=== PATIENT | female | born 1995 | race Caucasian/White ===

== ENCOUNTER 2018-03-28 23:12 | Emergency (ER) | payer SELFPAY ==
[~2018-03-28] VITALS: Ht 162.6 cm; Wt 69.8 kg
[2018-03-28 23:14] VITALS: BP 109/72
== END 2018-03-28 23:39 | disposition home or self-care (01) ==
LOC: ED 23:20
DX: F15.951 Other stimulant use, unspecified with stimulant-induced psychotic disorder with hallucinations (principal); F15.950 Other stimulant use, unspecified with stimulant-induced psychotic disorder with delusions; B35.3 Tinea pedis
CPT/HCPCS: 99282

== ENCOUNTER 2018-08-20 12:28 | Observation (INO) | payer MEDICAID ==
[~2018-08-20] VITALS: Ht 162.6 cm; Wt 79.0 kg
--- NOTE | 2018-08-20 13:01 | NUR ---
DENIES SI, SA, HI
--- NOTE | 2018-08-20 13:20 | NUR ---
PT TO RM 39 FROM MOBILE. ASSUMED CARE OF PT. PT BELONGINGS PLACED IN TWO BAGS AND PLACED I LOCKER. PT COOPERATIVE.
--- NOTE | 2018-08-20 13:28 | NUR ---
PT DENIES HAVING MH HX. 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 PT STATES SHE RAN AWAY FROM A [facility] DAYS AGO AND HAS BEEN ON THE STREETS SINCE THEN. PT STATES SHE PRESENTED TO [facility] BECAUSE OF RIGHT LEG PAIN AND BECAUSE SHE WAS COLD.
[2018-08-20 14:01] LABS: BASOPHILS # (AUTO) 0.04 x10^3/uL (0-0.1); BASOPHILS % (AUTO) 1 % (0-1); EOSINOPHILS # (AUTO) 0.22 x10^3/uL (0-0.4); EOSINOPHILS % (AUTO) 3 % (1-7); LYMPHOCYTES # (AUTO) 2.73 x10^3/uL (1-3.4); LYMPHOCYTES % (AUTO) 37 % (22-44); MD NO; MEAN CORPUSCULAR HEMOGLOBIN 32.7 pg (27.0-34.8); MEAN CORPUSCULAR HGB CONC 33.3 g/dL (32.4-35.8); MEAN CORPUSCULAR VOLUME 97.9 fL (80-100); MEAN PLATELET VOLUME 8.3 fL (7.4-10.4); MONOCYTES # (AUTO) 0.63 x10^3/uL (0.2-0.8); MONOCYTES % (AUTO) 8 % (2-9); NEUTROPHILS # (AUTO) 3.86 x10^3/uL (1.8-6.8); NEUTROPHILS % (AUTO) 52 % (42-75); PLATELET COUNT 263 x10^3/uL (130-400); RED BLOOD COUNT 3.88 x10^6/uL (3.82-5.3)
[2018-08-20 14:12] LABS: ALBUMIN 3.4 g/dL (3.4-5.0); ANION GAP 2 mmol/L (5-15); CALCIUM 8.2 mg/dL (8.5-10.1); CHLORIDE 110 mmol/L (98-107)
[2018-08-20 14:20] LABS: CREATININE 0.86 mg/dL (0.55-1.02); SALICYLATE LEVEL 2.6 mg/dL (2.8-20.0)
[2018-08-20 14:23] LABS: ACETAMINOPHEN < 2 mcg/mL (10-30)
--- NOTE | 2018-08-20 14:23 | NUR ---
Pt resting in bed with eyes closed, resp even and unlabored, NADN. Pt easily awakens to her name being called, denies needs. Room is secured, sitter within eyesight of pt, all safety measures observed.
--- NOTE | 2018-08-20 14:24 | NUR ---
Spoke with [employer] about pt case. She has called [facility] to request pt discharge info so that we may find out what correction pt is living at as pt does not know the name.
--- NOTE | 2018-08-20 14:48 | NUR ---
PT STATES SHE CANNOT GIVE A URINE SAMPLE AT THIS TIME
--- NOTE | 2018-08-20 16:03 | NUR ---
PROVIDED SANDWICH TRAY
--- NOTE | 2018-08-20 16:15 | NUR ---
UOB AND AMBULATED SHORT DISTANCE TO RESTROOM. STEADY GAIT BUT C/O PAIN TO RIGHT LEG. NO SWELLING OR IRREGULARITY OF LEG NOTED
[2018-08-20 17:10] LABS: AMPHETAMINE SCREEN, URINE Positive (Negative); BARBITURATE SCREEN, URINE Negative (Negative); BENZODIAZEPINE SCREEN, URINE Negative (Negative); CANNABINOID SCREEN, URINE Positive (Negative); COCAINE SCREEN, URINE Negative (Negative); METHADONE SCREEN, URINE Negative (Negative); OPIATE SCREEN, URINE Negative (Negative)
--- NOTE | 2018-08-20 18:29 | NUR ---
PT SLEEPING. VS UPDATED
--- NOTE | 2018-08-20 19:06 | NUR ---
REPORT RECIEVED FROM STEFAN TANG. ASSUMED PT CARE
--- NOTE | 2018-08-20 21:00 | NUR ---
REPORT CALLED TO STEFAN WORTHINGTON
[2018-08-20] MEDS ORDERED: LIDODERM 5% PATCH TD PRN (21:30)
[2018-08-20] MEDS ORDERED: ONDANSETRON ODT 4 MG PO PRN (21:30)
[2018-08-20] MEDS: NICOTINE 14MG/24 HR PATCH.TD24 TD SCH (21:30)
[2018-08-20] MEDS ORDERED: DOCUSATE 100 MG CAPSULE PO PRN (21:30)
[2018-08-20] MEDS ORDERED: ACETAMINOPHEN 325 MG TABLET PO PRN (21:30)
--- NOTE | 2018-08-20 21:41 | NUR ---
PT TRASNPORTED TO FLOOR WITH 2 BAGS OF BELONGINGS
[2018-08-20] MEDS ORDERED: ZIPRASIDONE 20 MG INJ IM ONE (22:00)
[2018-08-20 23:03] VITALS: BP 102/69
[2018-08-21] MEDS ORDERED: ZIPRASIDONE 20 MG INJ IM PRN (07:30)
[2018-08-21 10:00] VITALS: BP 105/72
[2018-08-21] MEDS: DIVALPROEX 125 MG CAP.SPRINK PO SCH ×2 (10:33→20:30)
[2018-08-21 20:00] VITALS: BP 104/67
[2018-08-21] MEDS: NICOTINE 14MG/24 HR PATCH.TD24 TD SCH (20:30)
[2018-08-22 10:01] VITALS: BP 91/57
[2018-08-22 20:09] VITALS: BP 98/68
[2018-08-22] MEDS: NICOTINE 14MG/24 HR PATCH.TD24 TD SCH (21:30)
[2018-08-23 08:00] VITALS: BP 103/70
[2018-08-23 19:02] VITALS: BP 101/70
[2018-08-23] MEDS: NICOTINE 14MG/24 HR PATCH.TD24 TD SCH (21:30)
[2018-08-24 08:36] VITALS: BP 108/72
[2018-08-24 19:50] VITALS: BP 99/65
[2018-08-24] MEDS: NICOTINE 14MG/24 HR PATCH.TD24 TD SCH (21:30)
[2018-08-25 07:58] VITALS: BP 91/60
[2018-08-25 20:11] VITALS: BP 111/72
[2018-08-25] MEDS: NICOTINE 14MG/24 HR PATCH.TD24 TD SCH (21:30)
[2018-08-26 08:01] VITALS: BP 94/58
[2018-08-26 19:15] VITALS: BP 96/65
[2018-08-26] MEDS: NICOTINE 14MG/24 HR PATCH.TD24 TD SCH (21:33)
[2018-08-27 08:10] VITALS: BP 99/63
[2018-08-27 19:08] VITALS: BP 98/66
[2018-08-27] MEDS: NICOTINE 14MG/24 HR PATCH.TD24 TD SCH (21:30)
[2018-08-27] MEDS ORDERED: OXCARBAZEPINE 150 MG TABLET PO SCH (23:00)
[2018-08-27] MEDS: OXCARBAZEPINE 150 MG TABLET PO SCH (23:16)
[2018-08-27] MEDS: DIPHENHYDRAMINE 50 MG CAPSULE PO SCH (23:16)
[2018-08-28 07:36] VITALS: BP 104/77
[2018-08-28 19:50] VITALS: BP 115/71
[2018-08-28] MEDS: NICOTINE 14MG/24 HR PATCH.TD24 TD SCH (21:30)
[2018-08-28] MEDS: OXCARBAZEPINE 150 MG TABLET PO SCH (21:40)
[2018-08-28] MEDS: DIPHENHYDRAMINE 50 MG CAPSULE PO SCH (21:40)
[2018-08-28] MEDS ORDERED: TRAZODONE 50MG TABLET ONE (22:56)
[2018-08-28] MEDS ORDERED: TRAZODONE 50MG TABLET PO ONE (23:00)
[2018-08-29 07:45] VITALS: BP 75/43
[2018-08-29 08:05] VITALS: BP 89/55
[2018-08-29 20:17] VITALS: BP 94/60
[2018-08-29] MEDS: DIPHENHYDRAMINE 50 MG CAPSULE PO SCH (20:37)
[2018-08-29] MEDS: OXCARBAZEPINE 150 MG TABLET PO SCH (20:38)
[2018-08-29] MEDS: NICOTINE 14MG/24 HR PATCH.TD24 TD SCH (21:30)
[2018-08-30 07:32] VITALS: BP 96/69
[2018-08-30] MEDS ORDERED: OXCA150T18 PO (14:39)
[2018-08-30] MEDS ORDERED: ACET325T14 PO (14:39)
[2018-08-30] MEDS ORDERED: DIPH50CA PO (14:39)
== END 2018-08-30 15:15 ==
LOC: ED 15:40 → EDIP 17:33 → 2N 21:44
PROVIDERS: ADMIT Hospitalist; ATTEND Hospitalist
DX: G92 Toxic encephalopathy (principal); F15.10 Other stimulant abuse, uncomplicated; F17.210 Nicotine dependence, cigarettes, uncomplicated; F20.9 Schizophrenia, unspecified; R41.82 Altered mental status, unspecified; Z79.899 Other long term (current) drug therapy
CPT/HCPCS: 36415; 80048; 80307; 80329; 82040; 82550; 83036; 84443; 84703; 85025; 87806; 99284; G0378; G0475; G0480